=== PATIENT | male | born 1955 | race Two or more races ===

== ENCOUNTER 2019-01-12 14:48 | Outpatient (CLI) | payer OTHER | END 2019-01-12 14:54 | disposition home or self-care (01) | LOC: RAD 14:48 | DX: N20.0 Calculus of kidney (principal) ==

== ENCOUNTER 2019-08-11 10:28 | Outpatient (CLI) | payer OTHER | END 2019-08-11 17:00 | disposition home or self-care (01) | LOC: TOM 10:28 | DX: N20.0 Calculus of kidney (principal); R31.0 Gross hematuria ==

== ENCOUNTER 2019-10-25 14:14 | Outpatient (CLI) | payer OTHER | END 2019-10-25 14:20 | disposition home or self-care (01) | LOC: RAD 14:14 | DX: N20.0 Calculus of kidney (principal) ==

== ENCOUNTER 2020-05-11 08:56 | Outpatient (CLI) | payer OTHER | END 2020-05-11 09:02 | disposition home or self-care (01) | LOC: RAD 08:56 | PROVIDERS: ATTEND Urology | DX: N20.0 Calculus of kidney (principal) ==

== ENCOUNTER → 2020-05-11 09:37 | Outpatient (CLI) | payer OTHER | END | disposition home or self-care (01) | LOC: LAB 09:37 | PROVIDERS: ATTEND Urology | DX: N20.1 Calculus of ureter (principal) ==

== ENCOUNTER 2021-03-23 08:44 | Outpatient (CLI) | payer OTHER ==
[2021-04-24] MEDS ORDERED: VASOTEC20 M1 PO (13:27)
[2021-04-24] MEDS ORDERED: ALDACTONE25 MG PO (13:27)
[2021-04-24] MEDS ORDERED: HORIZANT300 MG PO (13:27)
[2021-04-24] MEDS ORDERED: CHILDREN'S ASPI81 MG PO (13:28)
[2021-04-24] MEDS ORDERED: LASIX20 MG PO (13:28)
[2021-04-24] MEDS ORDERED: ACID REDUCER20 M1 PO (13:28)
[2021-04-24] MEDS ORDERED: ATORVASTATIN CA10 MG PO (13:28)
[2021-04-24] MEDS ORDERED: TOPROL XL25 M1 PO (13:28)
== END 2021-03-23 08:46 | disposition home or self-care (01) ==
LOC: LAB 08:44
PROVIDERS: ATTEND Urology
DX: N20.0 Calculus of kidney (principal)

== ENCOUNTER → 2021-04-24 09:35 | Outpatient (CLI) | payer OTHER ==
[~2021-04-24 09:35] MED LIST: ACID REDUCER20 M1 PO; ALDACTONE25 MG PO; ATORVASTATIN CA10 MG PO; CHILDREN'S ASPI81 MG PO; HORIZANT300 MG PO; LASIX20 MG PO; TOPROL XL25 M1 PO; VASOTEC20 M1 PO
== END | disposition home or self-care (01) ==
LOC: LAB 09:35
PROVIDERS: ATTEND Urology
DX: I11.9 Hypertensive heart disease without heart failure (principal); N20.0 Calculus of kidney

== ENCOUNTER 2021-05-09 09:12 | Inpatient (IN) | payer OTHER ==
[~2021-05-09] VITALS: Ht 170.2 cm; Wt 117.9 kg
== END 2021-05-11 15:21 | disposition home or self-care (01) | DRG 661 ==
LOC: CIR.AMB 09:12 → O/R 09:15 → EDSTATUS 09:30 → SURH 09:30 → CIR.AMB 09:30 → O/R 05-10 00:08 → CIR.AMB 05-10 00:08 → SURH 05-10 00:08 → SURG 05-10 00:08 → O/R 05-10 10:52 → SURG 05-10 10:52 → SURH 05-10 13:22 → SURG 05-10 13:22 → SURH 05-11 15:21
PROVIDERS: ADMIT Urology; ATTEND Urology
PROC: 0TC18ZZ Extirpation of Matter from Left Kidney, Via Natural or Artificial Opening Endoscopic (ICD-10-PCS; principal; 2021-05-10)
PROC: BT1FZZZ Fluoroscopy of Left Kidney, Ureter and Bladder (ICD-10-PCS; 2021-05-10)
DX: N20.0 Calculus of kidney (principal)

== ENCOUNTER 2021-05-22 10:57 | Outpatient (CLI) | payer OTHER | END 2021-05-22 10:58 | disposition home or self-care (01) | LOC: LAB 10:57 | PROVIDERS: ATTEND Urology | DX: N20.0 Calculus of kidney (principal); D62 Acute posthemorrhagic anemia ==

== ENCOUNTER 2021-08-06 10:42 | Outpatient (CLI) | payer OTHER | END 2021-08-06 10:47 | disposition home or self-care (01) | LOC: LAB 10:42 | PROVIDERS: ATTEND Urology | DX: N20.0 Calculus of kidney (principal) ==

== ENCOUNTER 2021-08-08 11:28 | Outpatient (CLI) | payer OTHER | END 2021-08-08 11:38 | disposition home or self-care (01) | LOC: LAB 11:28 → CIR.AMB 11:28 → LAB 11:38 | PROVIDERS: ATTEND Urology | DX: N20.0 Calculus of kidney (principal) ==

== ENCOUNTER 2021-12-14 12:09 | Outpatient (CLI) | payer OTHER | END 2021-12-14 12:19 | disposition home or self-care (01) | LOC: MRI 12:09 | DX: M51.26 Other intervertebral disc displacement, lumbar region (principal); M51.27 Other intervertebral disc displacement, lumbosacral region; M15.0 Primary generalized (osteo)arthritis | CPT/HCPCS: 72148 ==

== ENCOUNTER 2024-04-21 11:19 | Outpatient (CLI) | payer OTHER | END 2024-04-21 11:36 | disposition home or self-care (01) | LOC: MRI 11:19 | PROVIDERS: ATTEND Internal Medicine Cardiovascular Disease | DX: S39.012A Strain of muscle, fascia and tendon of lower back, initial encounter (principal); M19.90 Unspecified osteoarthritis, unspecified site | CPT/HCPCS: 72148 ==

== ENCOUNTER 2024-08-09 07:10 | Outpatient (CLI) | payer OTHER | END 2024-08-09 07:11 | disposition home or self-care (01) | LOC: EDBD 07:10 → NUCLEAR 07:10 | PROVIDERS: ATTEND Specialist | DX: I11.9 Hypertensive heart disease without heart failure (principal) | CPT/HCPCS: 78452; 93017; A9500; J0153 ==